=== PATIENT | male | born 1935 | race Caucasian/White ===

== ENCOUNTER 2022-10-09 16:28 | Emergency (ER) | payer MEDICARE, BC ==
[2022-10-09] MEDS ORDERED: Lidocaine 1% 5 ML VIAL INJECT ONE ×2 (17:08→17:13)
[2022-10-09] MEDS ORDERED: Diphtheria,Pertussis(Acell),Tetanus Vaccine 0.5 ML Syringe IM ONE (17:34)
[2022-10-09] MEDS ORDERED: Bacitracin Oint 1 GM U/D Packet TOP ONE (17:34)
[2022-10-09 18:07] VITALS: BP 108/86; PULSE 78
== END 2022-10-09 17:58 | disposition home or self-care (01) ==
LOC: DL.ED 16:28
DX: S61.411A Laceration without foreign body of right hand, initial encounter (principal); I25.10 Atherosclerotic heart disease of native coronary artery without angina pectoris; I10 Essential (primary) hypertension; E78.00 Pure hypercholesterolemia, unspecified; Z23 Encounter for immunization; Z79.82 Long term (current) use of aspirin; Z79.899 Other long term (current) drug therapy; Z87.891 Personal history of nicotine dependence; W26.8XXA Contact with other sharp object(s), not elsewhere classified, initial encounter
CPT/HCPCS: 12004; 90471; 90715; 99282; A9270; J3490

== ENCOUNTER 2023-01-22 13:13 | Inpatient (IN) | payer MEDICARE, BC ==
[2023-01-22] MEDS ORDERED: Sodium Chloride 0.9% 1,000 ML IV ONE (13:20)
[2023-01-22] MEDS ORDERED: cefTRIAXone 2 GM Vial IV ONE (13:20)
[2023-01-22 13:47] LABS: BASOPHILS PERCENT AUTO 0.2 % (0.0-1.0); EOSINOPHILS PERCENT AUTO 0.9 % (1.0-3.0); HEMOGLOBIN 12.9 g/dL (14.0-18.0); LYMPHOCYTES PERCENT AUTO 3.2 % (20.5-50.1); MEAN CORPUSCULAR HEMOGLOBIN 30.1 pg (27.0-34.0); MEAN CORPUSCULAR HGB CONC 34.9 g/dL (33.0-35.0); MEAN CORPUSCULAR VOLUME 86.4 fL (80-100); MONOCYTES PERCENT AUTO 6.1 % (2-8); NEUTROPHILS PERCENT AUTO 89.6 % (42.2-75.2); PLATELET COUNT,PLT 124 10^3/uL (150-450); RED BLOOD CELL COUNT 4.28 10^6/uL (4.6-6.2); WHITE BLOOD CELL COUNT,WBC 12.4 10^3/uL (5.0-10.0)
[2023-01-22] MEDS: Sodium Chloride 0.9% 10 ML Syringe FLUSH PRN (14:05)
[2023-01-22 14:07] LABS: ALBUMIN 3.5 g/dL (3.4-5.0); ANION GAP 17.1 mEq/L (7-13); BILIRUBIN TOTAL 1.2 mg/dL (0.2-1.0); BUN/CREATININE RATIO 11.5 (No establ ref range); CALCIUM 8.8 mg/dL (8.5-10.1); CREATININE 1.57 mg/dL (0.70-1.30); EST CRCL DRUG DOSING (CG) 34.64 mL/min; POTASSIUM,K 4.1 mmol/L (3.5-5.1)
[2023-01-22 14:10] LABS: LACTIC ACID 1.7 mmol/L (0.4-2.0)
[2023-01-22 16:43] LABS: APPEARANCE,URINE CLEAR (CLEAR); BILIRUBIN,URINE NEGATIVE (NEGATIVE); COLOR,URINE YELLOW (YELLOW); GLUCOSE,URINE NEGATIVE (NEGATIVE); KETONES,URINE NEGATIVE (NEGATIVE); LEUKOCYTE ESTERASE,URINE SMALL (NEGATIVE); NITRITE,URINE NEGATIVE (NEGATIVE); OCCULT BLOOD,URINE MODERATE (NEGATIVE); PROTEIN,URINE 30 (NEGATIVE)
[2023-01-22 16:51] LABS: EPITHELIAL CELLS,URINE NOT SEEN /HPF (NOT SEEN)
[2023-01-22 16:52] LABS: BACTERIA,URINE RARE /HPF (0-FEW/HPF)
[2023-01-22] MEDS ORDERED: Ondansetron 4 MG/2 ML SDV IVPUSH PRN (17:01)
[2023-01-22] MEDS ORDERED: Sennosides/Docusate Sodium 50-8.6 MG Tab PO PRN (17:01)
[2023-01-22] MEDS ORDERED: Polyethylene Glycol 3350 Powder 17 GM Packet PO PRN (17:01)
[2023-01-22] MEDS ORDERED: HYDROmorphone 0.5 MG/0.5 ML Syringe IVPUSH PRN (17:01)
[2023-01-22] MEDS ORDERED: Magnesium Hydroxide 400 MG/5 ML Susp 30 ML Cup PO PRN (17:01)
[2023-01-22] MEDS ORDERED: Albuterol/Ipratropium 3.0-0.5 MG/3 ML Neb Soln NEB PRN (17:01)
[2023-01-22] MEDS: Sodium Chloride 0.9% 1,000 ML IV SCH (17:43)
[2023-01-22] MEDS: Acetaminophen 325 MG Tab PO PRN (18:44)
[2023-01-23] MEDS ORDERED: Loratadine 10 MG Tab PO PRN (02:01)
[2023-01-23] MEDS ORDERED: Non-Formulary Medication 1 Each (Cetirizine [Zyrtec] 10 MG Tablet) PO PRN (02:01)
[2023-01-23] MEDS ORDERED: Fluticasone NASAL Spray 16 GM Bottle NAS PRN (02:01)
[2023-01-23 06:20] LABS: BASOPHILS PERCENT AUTO 0.2 % (0.0-1.0); HEMATOCRIT 33.2 % (40.0-54.0); HEMOGLOBIN 11.5 g/dL (14.0-18.0); LYMPHOCYTES PERCENT AUTO 5.3 % (20.5-50.1); MEAN CORPUSCULAR HEMOGLOBIN 30.3 pg (27.0-34.0); MEAN CORPUSCULAR HGB CONC 34.6 g/dL (33.0-35.0); MEAN CORPUSCULAR VOLUME 87.4 fL (80-100); MONOCYTES PERCENT AUTO 6.6 % (2-8); NEUTROPHILS PERCENT AUTO 84.9 % (42.2-75.2); PLATELET COUNT,PLT 116 10^3/uL (150-450); WHITE BLOOD CELL COUNT,WBC 8.4 10^3/uL (5.0-10.0)
[2023-01-23 06:44] LABS: A/G RATIO 0.91; ALBUMIN 2.9 g/dL (3.4-5.0); ANION GAP 13.8 mEq/L (7-13); BILIRUBIN TOTAL 0.5 mg/dL (0.2-1.0); C-REACTIVE PROTEIN 13.9 ng/dL (<=0.30); CALCIUM 8.4 mg/dL (8.5-10.1); CREATININE 1.45 mg/dL (0.70-1.30); EST CRCL DRUG DOSING (CG) 37.51 mL/min; MAGNESIUM 1.4 mg/dL (1.8-2.4); POTASSIUM,K 3.8 mmol/L (3.5-5.1); PROTEIN TOTAL,TP 6.1 g/dL (6.4-8.2)
[2023-01-23] MEDS ORDERED: Magnesium Sulfate/Water 2 GM in Premix Bag 1 BAG IV ONE (08:45)
[2023-01-23] MEDS ORDERED: cefTRIAXone 2 GM Vial IVPUSH SCH (09:00)
[2023-01-23] MEDS: Calcium Carbonate/Vitamin D3 1250 MG-5 MCG Tab PO SCH (09:17)
[2023-01-23] MEDS: cefTRIAXone 2 GM Vial IVPUSH SCH (09:17)
[2023-01-23] MEDS: Omeprazole 20 MG Cap.CR PO SCH (09:18)
[2023-01-23] MEDS: Saccharomyces Boulardii (Probiotic) 250 MG Cap PO SCH (09:18)
[2023-01-23] MEDS ORDERED: Meclizine 12.5 MG Tab PO PRN (12:26)
[2023-01-23] MEDS ORDERED: Piperacillin/Tazobactam 3.375 GM in Sodium Chloride 0.9% 100 ML IV SCH (14:00)
[2023-01-23] MEDS: Acetaminophen 325 MG Tab PO PRN ×2 (15:11→21:08)
[2023-01-23] MEDS: Sodium Chloride 0.9% 1,000 ML IV SCH (15:12)
[2023-01-23] MEDS: Melatonin 3 MG Tab PO PRN (21:08)
[2023-01-24 06:06] LABS: BASOPHILS PERCENT AUTO 0.3 % (0.0-1.0); EOSINOPHILS PERCENT AUTO 9.1 % (1.0-3.0); HEMATOCRIT 33.4 % (40.0-54.0); HEMOGLOBIN 11.6 g/dL (14.0-18.0); LYMPHOCYTES PERCENT AUTO 12.3 % (20.5-50.1); MEAN CORPUSCULAR HEMOGLOBIN 30.1 pg (27.0-34.0); MEAN CORPUSCULAR HGB CONC 34.7 g/dL (33.0-35.0); MEAN CORPUSCULAR VOLUME 86.5 fL (80-100); MONOCYTES PERCENT AUTO 10.8 % (2-8); NEUTROPHILS PERCENT AUTO 67.5 % (42.2-75.2); PLATELET COUNT,PLT 130 10^3/uL (150-450); RED BLOOD CELL COUNT 3.86 10^6/uL (4.6-6.2); WHITE BLOOD CELL COUNT,WBC 5.9 10^3/uL (5.0-10.0)
[2023-01-24 06:29] LABS: ALBUMIN 2.8 g/dL (3.4-5.0); ANION GAP 15.7 mEq/L (7-13); BILIRUBIN TOTAL 0.4 mg/dL (0.2-1.0); BUN/CREATININE RATIO 13.2 (No establ ref range); C-REACTIVE PROTEIN 9.45 ng/dL (<=0.30); CALCIUM 8.8 mg/dL (8.5-10.1); CREATININE 1.29 mg/dL (0.70-1.30); EST CRCL DRUG DOSING (CG) 42.16 mL/min; MAGNESIUM 1.8 mg/dL (1.8-2.4); POTASSIUM,K 3.7 mmol/L (3.5-5.1); PROTEIN TOTAL,TP 6.1 g/dL (6.4-8.2)
[2023-01-24 06:30] LABS: A/G RATIO 0.85
[2023-01-24] MEDS: Acetaminophen 325 MG Tab PO PRN ×2 (08:52→21:32)
[2023-01-24] MEDS: Omeprazole 20 MG Cap.CR PO SCH (08:53)
[2023-01-24] MEDS: Saccharomyces Boulardii (Probiotic) 250 MG Cap PO SCH (08:53)
[2023-01-24] MEDS: cefTRIAXone 2 GM Vial IVPUSH SCH (08:54)
[2023-01-24] MEDS: Calcium Carbonate/Vitamin D3 1250 MG-5 MCG Tab PO SCH (09:01)
[2023-01-24] MEDS: Melatonin 3 MG Tab PO PRN (21:27)
[2023-01-25] MEDS: Acetaminophen 325 MG Tab PO PRN (04:33)
[2023-01-25 06:36] LABS: BASOPHILS PERCENT AUTO 0.4 % (0.0-1.0); EOSINOPHILS PERCENT AUTO 9.7 % (1.0-3.0); HEMATOCRIT 33.3 % (40.0-54.0); HEMOGLOBIN 11.4 g/dL (14.0-18.0); LYMPHOCYTES PERCENT AUTO 14.5 % (20.5-50.1); MEAN CORPUSCULAR HEMOGLOBIN 29.6 pg (27.0-34.0); MEAN CORPUSCULAR HGB CONC 34.2 g/dL (33.0-35.0); MEAN CORPUSCULAR VOLUME 86.5 fL (80-100); MONOCYTES PERCENT AUTO 11.5 % (2-8); NEUTROPHILS PERCENT AUTO 63.9 % (42.2-75.2); PLATELET COUNT,PLT 137 10^3/uL (150-450); RED BLOOD CELL COUNT 3.85 10^6/uL (4.6-6.2)
[2023-01-25 07:00] LABS: ALBUMIN 2.7 g/dL (3.4-5.0); ANION GAP 12.1 mEq/L (7-13); BILIRUBIN TOTAL 0.4 mg/dL (0.2-1.0); BUN/CREATININE RATIO 14.5 (No establ ref range); C-REACTIVE PROTEIN 5.42 ng/dL (<=0.30); CALCIUM 8.9 mg/dL (8.5-10.1); CREATININE 1.17 mg/dL (0.70-1.30); EST CRCL DRUG DOSING (CG) 46.48 mL/min; MAGNESIUM 1.8 mg/dL (1.8-2.4); POTASSIUM,K 4.1 mmol/L (3.5-5.1); PROTEIN TOTAL,TP 5.8 g/dL (6.4-8.2)
[2023-01-25 07:01] LABS: A/G RATIO 0.87
[2023-01-25 07:51] VITALS: BP 116/67; PULSE 91
[2023-01-25] MEDS: cefTRIAXone 2 GM Vial IVPUSH SCH (09:14)
[2023-01-25] MEDS: Saccharomyces Boulardii (Probiotic) 250 MG Cap PO SCH (09:14)
[2023-01-25] MEDS: Omeprazole 20 MG Cap.CR PO SCH (09:14)
[2023-01-25] MEDS: Calcium Carbonate/Vitamin D3 1250 MG-5 MCG Tab PO SCH (09:14)
[2023-01-25] MEDS: Sodium Chloride 0.9% 10 ML Syringe FLUSH PRN (09:14)
== END 2023-01-25 11:16 | disposition home or self-care (01) | DRG 699 ==
LOC: DL.ED 13:13 → UNDOADMIN 16:23 → DL.MS 16:23
PROVIDERS: ADMIT Internal Medicine; ATTEND Internal Medicine
DX: T83.511A Infection and inflammatory reaction due to indwelling urethral catheter, initial encounter (principal); E87.1 Hypo-osmolality and hyponatremia; N17.9 Acute kidney failure, unspecified; E86.0 Dehydration; N39.0 Urinary tract infection, site not specified; E78.00 Pure hypercholesterolemia, unspecified; I10 Essential (primary) hypertension; M19.90 Unspecified osteoarthritis, unspecified site; F32.A Depression, unspecified; Z96.659 Presence of unspecified artificial knee joint; N40.1 Benign prostatic hyperplasia with lower urinary tract symptoms; R33.9 Retention of urine, unspecified; D69.6 Thrombocytopenia, unspecified; E87.8 Other disorders of electrolyte and fluid balance, not elsewhere classified; R73.9 Hyperglycemia, unspecified; E80.6 Other disorders of bilirubin metabolism; Z91.018 Allergy to other foods; E78.2 Mixed hyperlipidemia; I25.10 Atherosclerotic heart disease of native coronary artery without angina pectoris; Z90.89 Acquired absence of other organs; Z98.49 Cataract extraction status, unspecified eye; Z79.82 Long term (current) use of aspirin; Z79.899 Other long term (current) drug therapy; Z95.5 Presence of coronary angioplasty implant and graft
CPT/HCPCS: 36415; 80053; 81001; 83605; 83735; 84145; 85025; 86140; 87040; 87086; 96361; 96374; 99223; 99232; 99233; 99238; 99284; 99284-25; A9270-GY; J0696; J3475; J3490; J7030

== ENCOUNTER 2023-02-12 08:57 | Inpatient (IN) | payer MEDICARE, BC ==
[2023-02-12] MEDS ORDERED: Acetaminophen 500 MG Tab PO ONE (09:06)
[2023-02-12] MEDS: Sodium Chloride 0.9% 10 ML Syringe FLUSH PRN (09:13)
[2023-02-12] MEDS ORDERED: Albuterol/Ipratropium 3.0-0.5 MG/3 ML Neb Soln NEB ONE (09:20)
[2023-02-12] MEDS ORDERED: Albuterol/Ipratropium 3.0-0.5 MG/3 ML Neb Soln ONE (09:21)
[2023-02-12 09:31] LABS: BASOPHILS PERCENT AUTO 0.1 % (0.0-1.0); EOSINOPHILS PERCENT AUTO 0.7 % (1.0-3.0); HEMATOCRIT 37.9 % (40.0-54.0); HEMOGLOBIN 12.8 g/dL (14.0-18.0); MEAN CORPUSCULAR HEMOGLOBIN 29.8 pg (27.0-34.0); MEAN CORPUSCULAR HGB CONC 33.8 g/dL (33.0-35.0); MEAN CORPUSCULAR VOLUME 88.1 fL (80-100); NEUTROPHILS PERCENT AUTO 92.2 % (42.2-75.2); PLATELET COUNT,PLT 149 10^3/uL (150-450); WHITE BLOOD CELL COUNT,WBC 11.5 10^3/uL (5.0-10.0)
[2023-02-12 09:34] LABS: APPEARANCE,URINE CLEAR (CLEAR); BILIRUBIN,URINE NEGATIVE (NEGATIVE); COLOR,URINE YELLOW (YELLOW); GLUCOSE,URINE NEGATIVE (NEGATIVE); KETONES,URINE NEGATIVE (NEGATIVE); LEUKOCYTE ESTERASE,URINE NEGATIVE (NEGATIVE); NITRITE,URINE NEGATIVE (NEGATIVE); OCCULT BLOOD,URINE TRACE-LYSED (NEGATIVE); PROTEIN,URINE TRACE (NEGATIVE); UROBILINOGEN,URINE 0.2 mg/dL (0.2-1.0)
[2023-02-12 09:45] LABS: BACTERIA,URINE RARE /HPF (0-FEW/HPF); EPITHELIAL CELLS,URINE RARE /HPF (NOT SEEN); RBC,URINE 0-5 /HPF (0-5); WBC,URINE 0-5 /HPF (0-5/HPF)
[2023-02-12 09:52] LABS: CORONAVIRUS COVID-19 NAA NEGATIVE (NEGATIVE); INFLUENZA A NAA NEGATIVE (NEGATIVE); INFLUENZA B NAA NEGATIVE (NEGATIVE); RESPIRATORY SYNCYTIAL VIR NAA NEGATIVE (NEGATIVE)
[2023-02-12 10:00] LABS: ANION GAP 15.3 mEq/L (7-13); CALCIUM 9.4 mg/dL (8.5-10.1); CREATININE 1.52 mg/dL (0.70-1.30); EST CRCL DRUG DOSING (CG) 36.87 mL/min; POTASSIUM,K 4.3 mmol/L (3.5-5.1)
[2023-02-12 10:02] LABS: LACTIC ACID 2.6 mmol/L (0.4-2.0)
[2023-02-12] MEDS ORDERED: Sodium Chloride 0.9% 1,000 ML IV ONE (10:07)
[2023-02-12] MEDS ORDERED: Piperacillin/Tazobactam 3.375 GM in Sodium Chloride 0.9% 100 ML IV ONE (10:09)
[2023-02-12] MEDS ORDERED: Vancomycin 500 MG SDV ONE (10:55)
[2023-02-12] MEDS ORDERED: VANCOmycin 1.5 GM/300 ML 300 ML IV ONE (11:00)
[2023-02-12] MEDS ORDERED: Vancomycin 1 GM, Vancomycin 500 MG in Sodium Chloride 0.9% 250 ML IV ONE (11:00)
[2023-02-12] MEDS ORDERED: Polyethylene Glycol 3350 Powder 17 GM Packet PO PRN (11:26)
[2023-02-12] MEDS ORDERED: Acetaminophen 325 MG Tab PO PRN (11:26)
[2023-02-12] MEDS ORDERED: HYDROmorphone 0.5 MG/0.5 ML Syringe IVPUSH PRN (11:26)
[2023-02-12] MEDS ORDERED: Acetaminophen/oxyCODONE 325-5 MG Tab PO PRN (11:26)
[2023-02-12] MEDS ORDERED: Ondansetron 4 MG/2 ML SDV IVPUSH PRN (11:26)
[2023-02-12] MEDS ORDERED: Sennosides/Docusate Sodium 50-8.6 MG Tab PO PRN (11:26)
[2023-02-12] MEDS ORDERED: Magnesium Hydroxide 400 MG/5 ML Susp 30 ML Cup PO PRN (11:26)
[2023-02-12] MEDS ORDERED: hydrALAZINE 20 MG/ML SDV IVPUSH PRN (11:30)
[2023-02-12] MEDS ORDERED: Metoprolol Tartrate 5 MG/5 ML SDV IVPUSH PRN (11:30)
[2023-02-12] MEDS: Sodium Chloride 0.9% 1,000 ML IV SCH ×2 (12:36→22:36)
[2023-02-12] MEDS: Albuterol/Ipratropium 3.0-0.5 MG/3 ML Neb Soln NEB PRN ×2 (16:03→21:38)
[2023-02-12] MEDS ORDERED: Fluticasone NASAL Spray 16 GM Bottle NASBOTH PRN (16:05)
[2023-02-12] MEDS ORDERED: Loratadine 10 MG Tab PO PRN (16:05)
[2023-02-12 16:40] LABS: ANION GAP 13.1 mEq/L (7-13); CALCIUM 8.7 mg/dL (8.5-10.1); CREATININE 1.55 mg/dL (0.70-1.30); EST CRCL DRUG DOSING (CG) 35.09 mL/min; POTASSIUM,K 4.1 mmol/L (3.5-5.1)
[2023-02-12] MEDS: Saccharomyces Boulardii (Probiotic) 250 MG Cap PO SCH (20:47)
[2023-02-12] MEDS: Metoprolol Tartrate 25 MG Tab PO SCH (20:47)
[2023-02-12] MEDS ORDERED: [UNRECOGNIZED DRUG - OTHER] PO SCH (21:00)
[2023-02-12] MEDS ORDERED: Non-Formulary Medication 1 Each (Omega-3/Dha/Epa/Fish Oil [Omega-3 Fish Oil 1,000 Mg Sfgl] PO SCH (21:00)
[2023-02-12] MEDS ORDERED: GLUCOSAMINE SULFATE DIPOT CHLR 1000 MG PO SCH (21:00)
[2023-02-12] MEDS: Melatonin 3 MG Tab PO PRN (22:35)
[2023-02-13] MEDS: Albuterol/Ipratropium 3.0-0.5 MG/3 ML Neb Soln NEB PRN ×4 (05:26→21:18)
[2023-02-13] MEDS: Omeprazole 20 MG Cap.CR PO SCH (05:46)
[2023-02-13 06:21] LABS: HEMATOCRIT 31.5 % (40.0-54.0); HEMOGLOBIN 10.4 g/dL (14.0-18.0); MEAN CORPUSCULAR HEMOGLOBIN 29.5 pg (27.0-34.0); MEAN CORPUSCULAR VOLUME 89.2 fL (80-100); PLATELET COUNT,PLT 105 10^3/uL (150-450); RED BLOOD CELL COUNT 3.53 10^6/uL (4.6-6.2); WHITE BLOOD CELL COUNT,WBC 6.1 10^3/uL (5.0-10.0)
[2023-02-13 06:38] LABS: BASOPHILS PERCENT AUTO 0.2 % (0.0-1.0); EOSINOPHILS PERCENT AUTO 8.3 % (1.0-3.0); LYMPHOCYTES PERCENT AUTO 11.3 % (20.5-50.1); MONOCYTES PERCENT AUTO 8.6 % (2-8); NEUTROPHILS PERCENT AUTO 71.6 % (42.2-75.2)
[2023-02-13 06:41] LABS: ALBUMIN 2.8 g/dL (3.4-5.0); ANION GAP 13.7 mEq/L (7-13); BILIRUBIN TOTAL 0.6 mg/dL (0.2-1.0); BUN/CREATININE RATIO 12.3 (No establ ref range); C-REACTIVE PROTEIN 12.57 ng/dL (<=0.30); CALCIUM 8.6 mg/dL (8.5-10.1); CREATININE 1.3 mg/dL (0.70-1.30); EST CRCL DRUG DOSING (CG) 41.83 mL/min; MAGNESIUM 1.4 mg/dL (1.8-2.4); POTASSIUM,K 3.7 mmol/L (3.5-5.1)
[2023-02-13 06:43] LABS: A/G RATIO 0.88
[2023-02-13 06:56] LABS: EOSINOPHILS PERCENT MAN 9 % (1-3); LYMPHOCYTES PERCENT MAN 11 % (20-50); MONOCYTES PERCENT MAN 2 % (2-8); SEG NEUTROPHILS PERCENT MAN 78 % (42-75)
[2023-02-13] MEDS ORDERED: Magnesium Sulfate/Water 2 GM in Premix Bag 1 BAG IV ONE ×2 (07:36→12:00)
[2023-02-13] MEDS ORDERED: Losartan 25 MG Tab PO SCH (09:00)
[2023-02-13] MEDS: cefTRIAXone 2 GM Vial IVPUSH SCH (11:24)
[2023-02-13] MEDS: Cyanocobalamin (Vitamin B12) 1,000 MCG Tab PO SCH (11:30)
[2023-02-13] MEDS: Citalopram 20 MG Tab PO SCH (11:32)
[2023-02-13] MEDS: Azithromycin 250 MG Tab PO SCH (11:32)
[2023-02-13] MEDS: Multivitamin Tab PO SCH (11:32)
[2023-02-13] MEDS: Calcium Carbonate/Vitamin D3 1250 MG-5 MCG Tab PO SCH (11:32)
[2023-02-13] MEDS: Meclizine 12.5 MG Tab PO SCH (11:42)
[2023-02-13] MEDS: Saccharomyces Boulardii (Probiotic) 250 MG Cap PO SCH ×2 (11:42→21:24)
[2023-02-13] MEDS: Metoprolol Tartrate 25 MG Tab PO SCH ×2 (11:43→21:16)
[2023-02-13] MEDS: Rosuvastatin 10 MG Tab PO SCH (11:43)
[2023-02-13] MEDS: Melatonin 3 MG Tab PO PRN (21:17)
[2023-02-13 22:25] LABS: APPEARANCE,URINE CLEAR (CLEAR); BILIRUBIN,URINE NEGATIVE (NEGATIVE); COLOR,URINE YELLOW (YELLOW); GLUCOSE,URINE NEGATIVE (NEGATIVE); KETONES,URINE NEGATIVE (NEGATIVE); LEUKOCYTE ESTERASE,URINE NEGATIVE (NEGATIVE); NITRITE,URINE NEGATIVE (NEGATIVE); OCCULT BLOOD,URINE NEGATIVE (NEGATIVE); PROTEIN,URINE NEGATIVE (NEGATIVE); UROBILINOGEN,URINE 0.2 mg/dL (0.2-1.0)
[2023-02-13 22:34] LABS: BACTERIA,URINE RARE /HPF (0-FEW/HPF); EPITHELIAL CELLS,URINE RARE /HPF (NOT SEEN); RBC,URINE 0-5 /HPF (0-5); WBC,URINE 0-5 /HPF (0-5/HPF)
[2023-02-14] MEDS: Albuterol/Ipratropium 3.0-0.5 MG/3 ML Neb Soln NEB PRN (05:43)
[2023-02-14] MEDS: Omeprazole 20 MG Cap.CR PO SCH (05:58)
[2023-02-14 06:32] LABS: BASOPHILS PERCENT AUTO 0.2 % (0.0-1.0); EOSINOPHILS PERCENT AUTO 9.7 % (1.0-3.0); HEMATOCRIT 32.9 % (40.0-54.0); LYMPHOCYTES PERCENT AUTO 19.8 % (20.5-50.1); MEAN CORPUSCULAR HEMOGLOBIN 29.8 pg (27.0-34.0); MEAN CORPUSCULAR HGB CONC 33.4 g/dL (33.0-35.0); MEAN CORPUSCULAR VOLUME 89.2 fL (80-100); MONOCYTES PERCENT AUTO 10.2 % (2-8); NEUTROPHILS PERCENT AUTO 60.1 % (42.2-75.2); PLATELET COUNT,PLT 129 10^3/uL (150-450); RED BLOOD CELL COUNT 3.69 10^6/uL (4.6-6.2)
[2023-02-14 06:45] LABS: WHITE BLOOD CELL COUNT,WBC 5.8 10^3/uL (5.0-10.0)
[2023-02-14 07:02] LABS: A/G RATIO 0.88; BILIRUBIN TOTAL 0.4 mg/dL (0.2-1.0); BUN/CREATININE RATIO 13.3 (No establ ref range); C-REACTIVE PROTEIN 7.45 ng/dL (<=0.30); CALCIUM 8.8 mg/dL (8.5-10.1); CREATININE 1.28 mg/dL (0.70-1.30); EST CRCL DRUG DOSING (CG) 42.49 mL/min; MAGNESIUM 1.9 mg/dL (1.8-2.4); PROTEIN TOTAL,TP 6.4 g/dL (6.4-8.2)
[2023-02-14] MEDS: cefTRIAXone 2 GM Vial IVPUSH SCH (09:46)
[2023-02-14] MEDS: Azithromycin 250 MG Tab PO SCH (09:47)
[2023-02-14] MEDS: Saccharomyces Boulardii (Probiotic) 250 MG Cap PO SCH ×2 (09:47→20:32)
[2023-02-14] MEDS: Calcium Carbonate/Vitamin D3 1250 MG-5 MCG Tab PO SCH (09:48)
[2023-02-14] MEDS: Meclizine 12.5 MG Tab PO SCH (09:48)
[2023-02-14] MEDS: Multivitamin Tab PO SCH (09:49)
[2023-02-14] MEDS: Citalopram 20 MG Tab PO SCH (09:49)
[2023-02-14] MEDS: Rosuvastatin 10 MG Tab PO SCH (09:54)
[2023-02-14] MEDS: Cyanocobalamin (Vitamin B12) 1,000 MCG Tab PO SCH (09:55)
[2023-02-14] MEDS: Metoprolol Tartrate 25 MG Tab PO SCH ×2 (09:55→20:30)
[2023-02-14] MEDS: Melatonin 3 MG Tab PO PRN (20:31)
[2023-02-14] MEDS: Sodium Chloride 0.9% 10 ML Syringe FLUSH PRN (20:33)
[2023-02-15] MEDS: Omeprazole 20 MG Cap.CR PO SCH (06:01)
[2023-02-15 06:32] LABS: BASOPHILS PERCENT AUTO 0.5 % (0.0-1.0); HEMATOCRIT 31.8 % (40.0-54.0); HEMOGLOBIN 10.7 g/dL (14.0-18.0); LYMPHOCYTES PERCENT AUTO 22.9 % (20.5-50.1); MEAN CORPUSCULAR HEMOGLOBIN 29.8 pg (27.0-34.0); MEAN CORPUSCULAR HGB CONC 33.6 g/dL (33.0-35.0); MEAN CORPUSCULAR VOLUME 88.6 fL (80-100); MONOCYTES PERCENT AUTO 10.7 % (2-8); NEUTROPHILS PERCENT AUTO 54.9 % (42.2-75.2); PLATELET COUNT,PLT 131 10^3/uL (150-450); RED BLOOD CELL COUNT 3.59 10^6/uL (4.6-6.2); WHITE BLOOD CELL COUNT,WBC 4.2 10^3/uL (5.0-10.0)
[2023-02-15 07:02] LABS: ALBUMIN 2.9 g/dL (3.4-5.0); BILIRUBIN TOTAL 0.4 mg/dL (0.2-1.0); BUN/CREATININE RATIO 14.9 (No establ ref range); C-REACTIVE PROTEIN 3.22 ng/dL (<=0.30); CALCIUM 8.8 mg/dL (8.5-10.1); CREATININE 1.21 mg/dL (0.70-1.30); EST CRCL DRUG DOSING (CG) 44.94 mL/min; MAGNESIUM 1.5 mg/dL (1.8-2.4); PROTEIN TOTAL,TP 6.1 g/dL (6.4-8.2)
[2023-02-15 07:05] LABS: A/G RATIO 0.91
[2023-02-15] MEDS: Metoprolol Tartrate 25 MG Tab PO SCH (08:37)
[2023-02-15] MEDS: Rosuvastatin 10 MG Tab PO SCH (08:37)
[2023-02-15] MEDS: Citalopram 20 MG Tab PO SCH (08:37)
[2023-02-15] MEDS: Saccharomyces Boulardii (Probiotic) 250 MG Cap PO SCH (08:37)
[2023-02-15] MEDS: Azithromycin 250 MG Tab PO SCH (08:37)
[2023-02-15] MEDS: Calcium Carbonate/Vitamin D3 1250 MG-5 MCG Tab PO SCH (08:37)
[2023-02-15] MEDS: Cyanocobalamin (Vitamin B12) 1,000 MCG Tab PO SCH (08:37)
[2023-02-15] MEDS: Meclizine 12.5 MG Tab PO SCH (08:38)
[2023-02-15] MEDS: Multivitamin Tab PO SCH (08:38)
[2023-02-15] MEDS: cefTRIAXone 2 GM Vial IVPUSH SCH (08:38)
[2023-02-15] MEDS ORDERED: Magnesium Sulfate/Water 2 GM in Premix Bag 1 BAG IV ONE (09:22)
[2023-02-15 12:33] VITALS: BP 117/86; PULSE 85
== END 2023-02-15 12:37 | disposition home or self-care (01) | DRG 202 ==
LOC: DL.ED 08:57 → DL.MS 10:48 → UNDOADMOB 10:48 → DL.MS 10:49 → OBSVTOIN 02-13 09:00 → INTOOBSV 02-13 09:01 → OBSVTOIN 02-13 09:01 → UNDOADMOB 02-13 09:01 → DL.MS 02-13 09:01
PROVIDERS: ADMIT Internal Medicine; ATTEND Internal Medicine
DX: R09.02 Hypoxemia (principal); R50.9 Fever, unspecified; R05.9 Cough, unspecified; R06.02 Shortness of breath; J20.9 Acute bronchitis, unspecified; E87.1 Hypo-osmolality and hyponatremia; J98.11 Atelectasis; N17.9 Acute kidney failure, unspecified; E87.20 Acidosis, unspecified; I10 Essential (primary) hypertension; E78.5 Hyperlipidemia, unspecified; I25.10 Atherosclerotic heart disease of native coronary artery without angina pectoris; N40.0 Benign prostatic hyperplasia without lower urinary tract symptoms; Z20.822 Contact with and (suspected) exposure to COVID-19; N52.9 Male erectile dysfunction, unspecified; M19.90 Unspecified osteoarthritis, unspecified site; E53.8 Deficiency of other specified B group vitamins; F32.A Depression, unspecified; E78.00 Pure hypercholesterolemia, unspecified; Z96.659 Presence of unspecified artificial knee joint; D64.9 Anemia, unspecified; D69.6 Thrombocytopenia, unspecified; R73.9 Hyperglycemia, unspecified; Z79.82 Long term (current) use of aspirin; Z79.899 Other long term (current) drug therapy; Z91.018 Allergy to other foods; Z98.49 Cataract extraction status, unspecified eye; Z98.890 Other specified postprocedural states; Z95.5 Presence of coronary angioplasty implant and graft
CPT/HCPCS: 0241U; 36415; 71045; 80048; 80053; 81001; 83605; 83735; 84145; 85025; 85379; 86140; 87040; 87070; 87077; 87186; 87205; 94010; 94060; 94640; 94667; 94668; 94760; 94762; 96361; 96365; 96367; 99284; 99285-25; A9270-GY; C1758; G0378; J0696; J2543; J3370; J3475; J3490; J7030; J7040; J7050; J7620-GY

== ENCOUNTER 2023-10-27 08:28 | Emergency (ER) | payer MEDICARE, BC ==
[2023-10-27 08:44] LABS: BASOPHILS PERCENT AUTO 0.3 % (0.0-1.0); EOSINOPHILS PERCENT AUTO 2.3 % (1.0-3.0); HEMATOCRIT 40.5 % (40.0-54.0); HEMOGLOBIN 13.7 g/dL (14.0-18.0); LYMPHOCYTES PERCENT AUTO 31.8 % (20.5-50.1); MEAN CORPUSCULAR HEMOGLOBIN 29.7 pg (27.0-34.0); MEAN CORPUSCULAR HGB CONC 33.8 g/dL (33.0-35.0); MEAN CORPUSCULAR VOLUME 87.7 fL (80-100); MONOCYTES PERCENT AUTO 9.6 % (2-8); PLATELET COUNT,PLT 170 10^3/uL (150-450); RED BLOOD CELL COUNT 4.62 10^6/uL (4.6-6.2); WHITE BLOOD CELL COUNT,WBC 9.4 10^3/uL (5.0-10.0)
[2023-10-27 09:06] LABS: LACTIC ACID 1.9 mmol/L (0.4-2.0)
[2023-10-27 09:08] LABS: A/G RATIO 1.1; ALBUMIN 3.7 g/dL (3.4-5.0); ANION GAP 14.2 mEq/L (7-13); BILIRUBIN TOTAL 0.6 mg/dL (0.2-1.0); BUN/CREATININE RATIO 16.2 (No establ ref range); CALCIUM 9.5 mg/dL (8.5-10.1); CREATININE 1.36 mg/dL (0.70-1.30); EST CRCL DRUG DOSING (CG) 39.99 mL/min; MAGNESIUM 1.7 mg/dL (1.8-2.4); POTASSIUM,K 4.2 mmol/L (3.5-5.1); TSH ULTRASENSITIVE 1.42 uIU/mL (0.36-3.74)
[2023-10-27] MEDS: Sodium Chloride 0.9% 10 ML Syringe FLUSH PRN (09:23)
[2023-10-27] MEDS: Sodium Chloride 0.9% 1,000 ML IV ONE (09:24)
[2023-10-27 09:30] LABS: APPEARANCE,URINE CLEAR (CLEAR); BILIRUBIN,URINE NEGATIVE (NEGATIVE); COLOR,URINE YELLOW (YELLOW); GLUCOSE,URINE NEGATIVE (NEGATIVE); KETONES,URINE NEGATIVE (NEGATIVE); LEUKOCYTE ESTERASE,URINE NEGATIVE (NEGATIVE); NITRITE,URINE NEGATIVE (NEGATIVE); OCCULT BLOOD,URINE NEGATIVE (NEGATIVE); PH,URINE 6.5 (5.0-9.0); PROTEIN,URINE NEGATIVE (NEGATIVE); UROBILINOGEN,URINE 0.2 mg/dL (0.2-1.0)
[2023-10-27 10:45] VITALS: BP 128/78; PULSE 78
== END 2023-10-27 10:58 | disposition home or self-care (01) ==
LOC: DL.ED 08:28
DX: R55 Syncope and collapse (principal); E83.42 Hypomagnesemia; I10 Essential (primary) hypertension; E78.00 Pure hypercholesterolemia, unspecified; Z79.899 Other long term (current) drug therapy; Z79.82 Long term (current) use of aspirin; Z79.2 Long term (current) use of antibiotics; Z91.018 Allergy to other foods; Z88.8 Allergy status to other drugs, medicaments and biological substances
CPT/HCPCS: 36415; 70450; 71045; 80053; 81003; 82947; 83605; 83735; 83880; 84443; 84484; 85025; 87804; 93005; 93010; 99284; J7030; U0002; J3490